=== PATIENT | male | born 1950 | race Caucasian/White ===

== ENCOUNTER → 2017-08-27 | Outpatient (CLI) | payer MEDICARE, OTHER ==
[~2017-08-27] MED LIST: CITA20 PO; CRUTCH4 USE; HYDACE5 PO; LOVA20 PO; Norco 5-325 Ta1 EACH PO; TAMS.4ER
== END | disposition home or self-care (01) ==
LOC: LAB SHORT 15:46 → PLD 15:46
DX: D55.2 Anemia due to disorders of glycolytic enzymes (principal)
CPT/HCPCS: 88305

== ENCOUNTER 2022-10-31 08:55 | Day surgery (SDC) | payer MEDICARE, OTHER ==
[~2022-10-31] VITALS: Ht 172.7 cm; Wt 81.5 kg
[2022-10-31] VITALS (20 sets, daily range): BP systolic 105–153; BP diastolic 63–94
[~2022-10-31 08:55] MED LIST changes: +ERGO400; +METO25ER PO; +MULVITA PO
--- NOTE | 2022-10-31 10:31 | NUR ---
Ambulatory in [facility] warming gown applied. Patient states colon prep results clear. History, Chart, Medications and Allergies reviewed before start of procedure.Lungs clear T/O to Auscultation. Patient confirms NPO status and agrees with scheduled surgery. Pre-Op teaching done. Pt verbalizes understanding. Patient States Post-Procedure ride home has been arranged. Patient states colon prep results clear.
--- NOTE | 2022-10-31 10:54 | NUR ---
10/31/22 1054 Jean Claude Barber HISTORY, CHART, MEDICATIONS AND ALLERGIES REVIEWED BEFORE START OF PROCEDURE. PATIENT CONFIRMS NPO STATUS AND AGREES WITH SCHEDULED PROCEDURE. 3-LEAD EKG REVIEWED WITH PHYSICIAN PRIOR TO START OF PROCEDURE. MONITOR INTACT WITH CONTINUOUS PULSE OXIMETRY,CAPNOGRAPHY, 3-LEAD EKG, INTERMITTENT BP. SUPPLEMENTAL O2 TO BE TITRATED THROUGHOUT PROCEDURE TO MAINTAIN O2 SATURATION ABOVE 90%. PATIENT DETERMINED TO BE ASA APPROPRIATE FOR PROPOFOL SEDATION PRIOR TO START OF PROCEDURE BY DR. BIRMINGHAM.
--- NOTE | 2022-10-31 11:35 | NUR ---
REPORT RECIEVED. VSS. ON ROOM AIR. DR BIRMINGHAM AT BEDSIDE, AT BED SIDE. TOLERING PO FLUIDS
--- NOTE | 2022-10-31 11:48 | NUR ---
Patient up to Ambulate independently. Gait steady. Discharge instructions reviewed with patient. Patient verbalizes understanding. Copy given to patient to take home. Discharged via wheelchair to private car for ride home.
== END 2022-10-31 11:56 | disposition home or self-care (01) ==
LOC: ORSCMMR 08:55 → ORD 10:00 → ORSCMMR 11:56
PROVIDERS: Internal Medicine Gastroenterology
PROC: 0DBK8ZX Excision of Ascending Colon, Via Natural or Artificial Opening Endoscopic, Diagnostic (ICD-10-PCS; principal; 2022-10-31 10:00)
PROC: 0DB98ZX Excision of Duodenum, Via Natural or Artificial Opening Endoscopic, Diagnostic (ICD-10-PCS; principal; 2022-10-31 10:00)
PROC: 0DB68ZX Excision of Stomach, Via Natural or Artificial Opening Endoscopic, Diagnostic (ICD-10-PCS; principal; 2022-10-31 10:00)
DX: R10.13 Epigastric pain (principal); R10.9 Unspecified abdominal pain; Z87.11 Personal history of peptic ulcer disease; B96.81 Helicobacter pylori [H. pylori] as the cause of diseases classified elsewhere; D12.2 Benign neoplasm of ascending colon; K57.30 Diverticulosis of large intestine without perforation or abscess without bleeding; E78.00 Pure hypercholesterolemia, unspecified; K21.9 Gastro-esophageal reflux disease without esophagitis; F32.A Depression, unspecified; Z87.891 Personal history of nicotine dependence; Z79.82 Long term (current) use of aspirin; Z79.899 Other long term (current) drug therapy
CPT/HCPCS: 88305; 88342; A9270; J2704; J7120

== ENCOUNTER → 2023-01-03 | Outpatient (CLI) | payer MEDICARE, OTHER | LOC: LAB 16:24 → LAB SHORT 16:24 | DX: R30.0 Dysuria (principal) | CPT/HCPCS: 87086 ==

== ENCOUNTER → 2024-02-29 | Outpatient (CLI) | payer MEDICARE, OTHER ==
[2024-02-29 18:35] LABS: Albumin, Blood 3.7 g/dL (3.4-5.0); Bilirubin, Total 0.5 mg/dL (0.1-1.0); Bun/Creatinine Ratio 18.5 (12.0-20.0); Calcium, Blood 8.8 mg/dL (8.5-10.1); Creatinine, Blood 0.87 mg/dL (0.60-1.20); Globulin, Blood 3.7 g/dL (2.2-4.0); Total Protein, Blood 7.4 g/dL (6.4-8.2)
== END ==
LOC: LAB 16:32 → LAB SHORT 16:32
PROVIDERS: Nurse Practitioner Family
DX: D50.9 Iron deficiency anemia, unspecified (principal); R25.2 Cramp and spasm
CPT/HCPCS: 80053; 82728; 83540; 83550; 83735

== ENCOUNTER 2025-02-12 11:38 | Day surgery (SDC) | payer MEDICARE, OTHER ==
[2025-02-12] MEDS ORDERED: NS 250 ML IV SCH (12:05)
[2025-02-12 16:00] VITALS: BP 106/75
[2025-02-12 17:13] VITALS: BP 101/69
[2025-02-12 18:13] VITALS: BP 120/69
[2025-02-12 18:47] VITALS: BP 124/79
[2025-02-12] MEDS ORDERED: TADALAFIL2.5 MG (19:12)
[2025-02-12] MEDS ORDERED: Cyclobenzaprine5 MG PO (19:12)
[2025-02-12] MEDS ORDERED: FINA5 PO (19:12)
[2025-02-12] MEDS ORDERED: FERSU300 PO (19:13)
[2025-02-12] MEDS ORDERED: PANT40 PO (19:13)
== END 2025-02-12 18:55 | disposition home or self-care (01) ==
LOC: ATC 11:38
DX: D61.818 Other pancytopenia (principal); K21.9 Gastro-esophageal reflux disease without esophagitis; Z87.891 Personal history of nicotine dependence; Z79.899 Other long term (current) drug therapy
CPT/HCPCS: 36430; 86850; 86900; 86901; 86923; J7050; P9016

== ENCOUNTER 2025-03-12 00:38 | Day surgery (SDC) | payer MEDICARE, OTHER ==
[~2025-03-12 00:38] MED LIST changes: +Cyclobenzaprine5 MG PO; +FERSU300 PO; +FINA5 PO; +PANT40 PO; +TADALAFIL2.5 MG
[2025-03-12] MEDS ORDERED: NS 250 ML IV SCH (07:00)
[2025-03-12 07:42] VITALS: BP 105/69
[2025-03-12 08:00] VITALS: BP 94/55
[2025-03-12 09:15] VITALS: BP 104/63
== END 2025-03-12 09:20 | disposition home or self-care (01) ==
LOC: ATC 00:38
DX: D61.818 Other pancytopenia (principal); E78.00 Pure hypercholesterolemia, unspecified; I73.9 Peripheral vascular disease, unspecified; Z87.891 Personal history of nicotine dependence
CPT/HCPCS: 36430; 86850; 86900; 86901; 86923; J7050; P9016

== ENCOUNTER 2025-04-12 23:32 | Inpatient (IN) | payer MEDICARE, OTHER ==
[~2025-04-12] VITALS: Ht 170.2 cm; Wt 73.8 kg
[2025-04-13] VITALS (9 sets, daily range): BP systolic 95–122; BP diastolic 60–82
[2025-04-13 00:28] LABS: Hematocrit 25.4 % (37.0-53.0); Hemoglobin 8.8 g/dL (13.5-17.5); Mean Corpuscular HGB Conc 34.6 g/dL (31.5-36.5); Mean Corpuscular Volume 91 fL (80-100); NRBC ABSOLUTE 0.00 K/mm3 (0.00-0.02); NRBC Auto 0.0 /100 WBC (0.0-0.2); RDW Coefficient Variation 17.8 % (11.7-14.2); RDW Standard Deviation 57.6 fL (35.1-46.3)
[2025-04-13 00:39] LABS: BASOPHILS ABSOLUTE AUTO 0.00 K/mm3 (0.00-0.23); BASOPHILS PERCENT AUTO 0 % (0-2); EOSINOPHILS ABSOLUTE AUTO 0.00 K/mm3 (0.00-0.68); EOSINOPHILS PERCENT AUTO 0 % (0-6); IMMATURE GRAN ABSOLUTE AUTO 0.00 K/mm3 (0.00-0.10); IMMATURE GRAN PERCENT AUTO 0 % (0-1); LYMPHOCYTES ABSOLUTE AUTO 0.58 K/mm3 (0.84-5.20); LYMPHOCYTES PERCENT AUTO 95 % (21-46); MONOCYTES ABSOLUTE AUTO 0.01 K/mm3 (0.16-1.47); MONOCYTES PERCENT AUTO 2 % (4-13); NEUTROPHILS ABSOLUTE AUTO 0.02 K/mm3 (1.96-9.15); NEUTROPHILS PERCENT AUTO 3 % (41-73)
[2025-04-13 00:42] LABS: Platelet Count 4 K/mm3 (150-400)
[2025-04-13 00:45] LABS: Prothrombin Time Results 11.2 Sec (9.7-11.5)
[2025-04-13 00:54] LABS: Alanine Aminotransfer (ALT/SGP 81.0 U/L (12-78); Albumin, Blood 3.3 g/dL (3.4-5.0); Albumin/Globulin Ratio 1.0 (0.8-1.8); Anion Gap 10.0 mmol/L (3-11); Aspartate Aminotrans (AST/SGOT 28.0 U/L (12-37); Bilirubin, Total 1.1 mg/dL (0.1-1.0); Blood Urea Nitrogen 17.0 mg/dL (8-24); CO2, Blood 23.0 mmol/L (21-32); Calcium, Blood 8.5 mg/dL (8.5-10.1); Chloride, Blood 108.0 mmol/L (98-108); Creatinine, Blood 0.88 mg/dL (0.60-1.20); Globulin, Blood 3.4 g/dL (2.2-4.0); Glucose, Blood 103.0 mg/dL (70-99); Potassium, Blood 3.6 mmol/L (3.5-5.5); Sodium, Blood 137.0 mmol/L (136-145); Total Protein, Blood 6.7 g/dL (6.4-8.2)
[2025-04-13] MEDS ORDERED: PRAV20 PO (03:47)
[2025-04-13] MEDS ORDERED: ACYC800 PO (03:50)
[2025-04-13] MEDS ORDERED: LEVOFLOXACIN50011 PO (03:51)
[2025-04-13] MEDS ORDERED: POSACONAZOLE100 MG PO (03:53)
[2025-04-13] MEDS ORDERED: SILODOSIN8 MG PO (03:54)
[2025-04-13 04:47] LABS: Hematocrit 26.2 % (37.0-53.0); Hemoglobin 8.9 g/dL (13.5-17.5); Mean Corpuscular HGB Conc 34.0 g/dL (31.5-36.5); Mean Corpuscular Volume 90 fL (80-100); NRBC ABSOLUTE 0.00 K/mm3 (0.00-0.02); NRBC Auto 0.0 /100 WBC (0.0-0.2); RDW Coefficient Variation 17.7 % (11.7-14.2); RDW Standard Deviation 58.0 fL (35.1-46.3)
[2025-04-13 05:01] LABS: Platelet Count 19 K/mm3 (150-400)
[2025-04-13] MEDS ORDERED: NS 500 ML IV SCH (05:45)
--- NOTE | 2025-04-13 06:35 | NUR ---
NEW ADMIT FOR 04/13/25 0330: SHIFT SUMMARY RECEIVED REPORT FROM THE ER. PT WAS BROUGHT DOWN ON THE GURNEY AND WAS ABLE TO GET UP AND AMBULATE TO THE BED. HE WAS ORIENTED TO HIS ROOM AND THE STAFF. ALERT ORIENTED X 4 ABLE TO VERBALIZE NEEDS .CALLS APPROPRIATELY. HE WAS HAVING A HEADACHE DOWN IN THE ER AND WAS GIVEN TYLENOL. HE STATED HE HAS NO MORE C/O HEADACHE. HIS PLATELETS IN THE ER WERE 4 AND HE RECEIVED 1 UNIT OF PLATELETS. A PLATELET LAB WAS DRAWN AFTER THE 1 UNIT AND IT WAS AT 19. CALLED MD AND INFORMED HIM AND HE STATED THAT THE PLATELET ORDER FROM THE ER DOCTOR WAS FOR 2 UNITS. I CALLED THE LAB AND THEY SENT UP THE OTHER UNIT OF PLATELETS WHICH ARE RUNNING NOW. HE WILL HAVE ANOTHER LAB DRAWN AFTER THE PLATELETS ARE FINISHED. HES ON A REGULAR DIET. ABLE TO TAKE MEDS WHOLE WITH WATER. HE HAS A PICC LINE TO HIS RT ARM THAT DRAWS. HE HAS A BRUISE TO HIS RIGHT EYE AND A BRUISE TO HIS RT LOWER LEG. BED IN LOWEST POSITION. CALL LIGHT IN REACH. CALLS APPROPRIATELY.
[2025-04-13 07:55] LABS: Hematocrit 23.1 % (37.0-53.0); Hemoglobin 7.9 g/dL (13.5-17.5); Mean Corpuscular HGB Conc 34.2 g/dL (31.5-36.5); Mean Corpuscular Volume 90 fL (80-100); NRBC ABSOLUTE 0.00 K/mm3 (0.00-0.02); NRBC Auto 0.0 /100 WBC (0.0-0.2); RDW Coefficient Variation 17.5 % (11.7-14.2); RDW Standard Deviation 56.8 fL (35.1-46.3)
[2025-04-13 08:07] LABS: Platelet Count 49 K/mm3 (150-400)
[2025-04-13 12:25] LABS: Hematocrit 23.4 % (37.0-53.0); Hemoglobin 8.1 g/dL (13.5-17.5); Mean Corpuscular HGB Conc 34.6 g/dL (31.5-36.5); Mean Corpuscular Volume 91 fL (80-100); NRBC ABSOLUTE 0.00 K/mm3 (0.00-0.02); NRBC Auto 0.0 /100 WBC (0.0-0.2); RDW Coefficient Variation 17.6 % (11.7-14.2); RDW Standard Deviation 57.3 fL (35.1-46.3)
[2025-04-13 12:32] LABS: BASOPHILS ABSOLUTE AUTO 0.00 K/mm3 (0.00-0.23); BASOPHILS PERCENT AUTO 0 % (0-2); EOSINOPHILS ABSOLUTE AUTO 0.00 K/mm3 (0.00-0.68); EOSINOPHILS PERCENT AUTO 0 % (0-6); IMMATURE GRAN ABSOLUTE AUTO 0.00 K/mm3 (0.00-0.10); IMMATURE GRAN PERCENT AUTO 0 % (0-1); LYMPHOCYTES ABSOLUTE AUTO 0.43 K/mm3 (0.84-5.20); LYMPHOCYTES PERCENT AUTO 94 % (21-46); MONOCYTES ABSOLUTE AUTO 0.01 K/mm3 (0.16-1.47); MONOCYTES PERCENT AUTO 2 % (4-13); NEUTROPHILS ABSOLUTE AUTO 0.02 K/mm3 (1.96-9.15); NEUTROPHILS PERCENT AUTO 4 % (41-73)
[2025-04-13 12:37] LABS: Platelet Count 50 K/mm3 (150-400)
--- NOTE | 2025-04-13 14:03 | NUR ---
RESTING IN BED, INDEPENDENT IN ROOM, DENIES ANY DISCOMFORT AT THIS TIME, CONT. TO MONITOR FOR ANY CHANGES.
--- NOTE | 2025-04-13 14:53 | NUR ---
NOTIFIED BY PT HE HAD A BM THAT IS DARK/BLACK COLORED, PT CONCERNED ABOUT "BLEEDING" ALSO REPORTS HE TOOK PEPTO BISMOL YESTERDAY, DR. HUYNH NOTIFIED, GUIAC ORDERED, DENIES ANY ABD PAIN, ABD SOFT AND NONTENDER, CONT. TO MONITOR FOR ANY CHANGES.
--- NOTE | 2025-04-13 17:00 | NUR ---
SHIFT SUMMARY A&OX4, DENIES ANY PAIN OR ANY DISCOMFORT T/O SHIFT, INDEPENDENT IN ROOM, NEUTROPENIC PRECAUTIONS, PENDING TRANSFER TO [facility], NO ACUTE CHANGES THIS SHIFT.
[2025-04-14] VITALS (10 sets, daily range): BP systolic 100–134; BP diastolic 49–93
--- NOTE | 2025-04-14 03:38 | NUR ---
SHIFT SUMMARY ALERT ORIENTED X 4 ABLE TO VERBALIZE NEEDS .CALLS APPROPRIATELY. GETS UP AD KYRA IN HIS ROOM AND URINATES IN A URINAL. C/O HEADACHE WAS GIVEN TYLENOL WITH GOOD RELIEF..LABS DRAWN FOR THIS AM ARE DONE AWAITING RESULTS TO SEE WHAT HIS PLATELETS ARE. [facility] CALLED TO GET A REPORT ON HIM. VSS ON RA SATTING AT 95-100%. REMAINS ON TELEMETRY AT [facility] WITH [facility] IN THE 60 S. NEURO CHECKS ARE GOD EXCEPT FOR HIS HEADACHE. NO DARK STOOLS THIS SHIFT. HE'S TOLERATING A REGULAR DIET. ABLE TO TAKE MEDS WHOLE WITH WATER. HE HAS A PICC LINE TO HIS RT ARM THAT DRAWS. HE HAS A BRUISE TO HIS RIGHT EYE AND A BRUISE TO HIS RT LOWER LEG. BED IN LOWEST POSITION. CALL LIGHT IN REACH. CALLS APPROPRIATELY.
[2025-04-14 03:58] LABS: Hematocrit 23.1 % (37.0-53.0); Hemoglobin 8.0 g/dL (13.5-17.5); Mean Corpuscular HGB Conc 34.6 g/dL (31.5-36.5); Mean Corpuscular Volume 89 fL (80-100); NRBC ABSOLUTE 0.00 K/mm3 (0.00-0.02); NRBC Auto 0.0 /100 WBC (0.0-0.2); RDW Coefficient Variation 17.4 % (11.7-14.2); RDW Standard Deviation 55.7 fL (35.1-46.3)
[2025-04-14 04:25] LABS: Platelet Count 38 K/mm3 (150-400)
[2025-04-14 04:31] LABS: Albumin, Blood 3.3 g/dL (3.4-5.0); Anion Gap 7 mmol/L (3-11); Blood Urea Nitrogen 15 mg/dL (8-24); CO2, Blood 27 mmol/L (21-32); Calcium, Blood 8.6 mg/dL (8.5-10.1); Chloride, Blood 106 mmol/L (98-108); Creatinine, Blood 0.93 mg/dL (0.60-1.20); Glucose, Blood 102 mg/dL (70-99); Magnesium, Blood 2.2 mg/dL (1.6-2.4); Phosphorus, Blood 2.4 mg/dL (2.5-4.9); Potassium, Blood 3.6 mmol/L (3.5-5.5); Sodium, Blood 136 mmol/L (136-145)
--- NOTE | 2025-04-14 04:43 | NUR ---
SHIFT SUMMARY ALERT ORIENTED X 4 ABLE TO VERBALIZE NEEDS .CALLS APPROPRIATELY. GETS UP TO THE COMMODE WITH 1 PERSON SBA. HER HR HAS BEEN ALL OVER THE PLACE THIS SHIFT 80 S-150 S. AT THE START OF THE SHIFT SHE WAS ON CARDIZEM 10. HER BP WAS AT 84/67 SO WE TURNED OFF THE CARDIZEM DRIP. HER HR STARTED GOING BACK UP TO THE 140 S-150 S. CALLED MD AND GOT A ORDER FOR METOPROLOL. A DOSE WAS GIVEN AT 2258. HER HR CONTINUED TO STAY THE SAME IN THE 130 S SO WE RESTARTED HER CARDIZEM DRIP AT 2322. SHE'S CURRENTLY ON CARDIZEM 10. HER HR NOW IS IN THE 80 S-100 S. BP REMAINS STABLE. SHES CURRENTLY ON 3.5L OF O2 VIA NC SATTING 93-95%. SHE'S ALSO ON A HEPARIN DRIP AT 15U/KG/HR OR 19.5ML/HR. THE LAB WAS DONE AT 0130 WAS 0.56 SO WE CONTINUED THE SAME DOSE. IT WILL BE RECHECKED AT 0800. REMAINS ON TELEMETRY AT [facility] WITH [facility]. . SHE'S TOLERATING A 2 GM SODIUM DIET. ABLE TO TAKE MEDS WHOLE WITH WATER. . BED IN LOWEST POSITION. CALL LIGHT IN REACH. CALLS APPROPRIATELY.
[2025-04-14 08:50] LABS: Hematocrit 23.7 % (37.0-53.0); Hemoglobin 8.3 g/dL (13.5-17.5); Mean Corpuscular HGB Conc 35.0 g/dL (31.5-36.5); Mean Corpuscular Volume 91 fL (80-100); NRBC ABSOLUTE 0.00 K/mm3 (0.00-0.02); NRBC Auto 0.0 /100 WBC (0.0-0.2); Platelet Count 65 K/mm3 (150-400); RDW Coefficient Variation 17.5 % (11.7-14.2); RDW Standard Deviation 56.4 fL (35.1-46.3)
[2025-04-14 09:22] LABS: BASOPHILS ABSOLUTE MAN 0.02 K/mm3 (0.00-0.23); BASOPHILS PERCENT MAN 4 % (0-2); EOSINOPHILS ABSOLUTE MAN 0.00 K/mm3 (0.00-0.68); EOSINOPHILS PERCENT MAN 0 % (0-6); LYMPHOCYTES ABSOLUTE MAN 0.49 K/mm3 (0.84-5.20); LYMPHOCYTES PERCENT MAN 88 % (21-46); MONOCYTES ABSOLUTE MAN 0.00 K/mm3 (0.16-1.47); MONOCYTES PERCENT MAN 0 % (4-13); NEUTROPHILS ABSOLUTE MAN 0.04 K/mm3 (1.96-9.15); SEG NEUTROPHILS PERCENT MAN 8 % (41-73)
[2025-04-14 12:50] LABS: Stool Occult Blood Guaiac 1 Neg (Neg)
--- NOTE | 2025-04-14 13:15 | NUR ---
TRANSFER NOTE PATIENT RECIEVED FROM PCU VIA WHEELCHAIR,A&OX4,DENIES HEADACHE,SOB, OR N/V AT THIS TIME.ORIENTED TO NEW ROOM, PT IN BED, BED LOW W/HANDRAILS UP, CALL LIGHT WITHIN REACH, PROVIDED WITH WATER AND THIS RN WORE A FACE MASK THROUGHOUT TIME WITH PATIENT PER HIS REQUEST. NO FURTHER NEEDS AT THIS TIME WILL CONTINUE TO MONITOR.
--- NOTE | 2025-04-14 15:00 | NUR ---
[facility] CALL- THIS RN SPOKE WITH [facility] TRANSFER RN ARELIS AND GAVE HER CURRENT STATUS OF PT INCLUDING HIS DOWNGRADE FROM PCU TO MEDICAL FLOOR, PLATELETS INCREASING FROM 49 TO 65 AFTER 3 UNITS OF PLATELETS GIVEN OVER 24HR PERIOD, CBC AND CMP TO BE DRAWN THIS EVENING TO RE-EVALUATE PLATELETS,OCCULT STOOL=NEGATIVE, CT RESULTS SHOWED CHRONIC VS/ACUTE BILATERAL SUBDURAL HEMATOMAS W/UNCHANGING ECCHYMOSIS AROUND RT EYE, HEADACHES MANAGED WELL W/PRN TYLENOL.NO BEDS CURRENTLY AVAILABLE FOR PT TO TRANSFER TO [facility],MADE PTS WISHES KNOW NOT TO BE TRANSFERRED TO [facility] IF POSSIBLE AND IF STABLE TO BE DISCHARGED HOME FROM THIS HOSPITAL AND FOLLOW UP OUT PATIENT, ARELIS MADE A NOTE OF THAT AND IF PATIENTS CONDITONS CONTINUES TO STABLIZE AND MD HERE AT [facility], MAY BE APPROPRIATE TO DC PT HOME FROM THIS HOSPITAL.
--- NOTE | 2025-04-14 17:16 | NUR ---
PATIENT RESTING IN BED, TRANSFERRED FROM PCU TO MEDICAL FLOOR THIS AFTERNOON, A&OX4, DENIES SOB,PAIN OR N/V AT THIS TIME. SETTLED INTO NEW ROOM, CALL LIGHT WITHIN REACH,BED LOW W/HANDRAILS IN UP POSITION. PATIENT INDEPENDENT TO RESTROOM, NO BM DURING TIME IN MEDICAL UNIT, VITALS WNL, SKIN PINK WARM AND DRY WITH BRUISING AROUND RIGHT EYE, VISITOR AT BEDSIDE VISITING WITH PATIENT, FRESH WATER PROVIDED, NO NEW ORDERS NOTED, WILL CONTINUE TO MONITOR, SBAR TO PM NURSE AT 1915.
--- NOTE | 2025-04-14 18:20 | NUR ---
LAB DRAW VIA PICC LINE BY THIS RN, PICC TO RT UPPER ARM, 2 LUMEN, PATENT, WITHDREW 10MLS OF BLOOD AND DISCARDED, WITHDREW ANOTHER 10 MLS AND FILLED PURPLE TUBE PER MD/LAB ORDER PROTOCOL, LABELED AND SENT TO LAB VIA TUBE SYSTEM.
[2025-04-14 18:52] LABS: Hematocrit 23.7 % (37.0-53.0); Hemoglobin 8.2 g/dL (13.5-17.5); Mean Corpuscular HGB Conc 34.6 g/dL (31.5-36.5); Mean Corpuscular Volume 89 fL (80-100); NRBC ABSOLUTE 0.00 K/mm3 (0.00-0.02); NRBC Auto 0.0 /100 WBC (0.0-0.2); Platelet Count 63 K/mm3 (150-400); RDW Coefficient Variation 17.4 % (11.7-14.2); RDW Standard Deviation 55.9 fL (35.1-46.3)
[2025-04-14 19:07] LABS: BASOPHILS ABSOLUTE AUTO 0.00 K/mm3 (0.00-0.23); BASOPHILS PERCENT AUTO 0 % (0-2); EOSINOPHILS ABSOLUTE AUTO 0.01 K/mm3 (0.00-0.68); EOSINOPHILS PERCENT AUTO 2 % (0-6); IMMATURE GRAN ABSOLUTE AUTO 0.00 K/mm3 (0.00-0.10); IMMATURE GRAN PERCENT AUTO 0 % (0-1); LYMPHOCYTES ABSOLUTE AUTO 0.49 K/mm3 (0.84-5.20); LYMPHOCYTES PERCENT AUTO 91 % (21-46); MONOCYTES ABSOLUTE AUTO 0.02 K/mm3 (0.16-1.47); MONOCYTES PERCENT AUTO 4 % (4-13); NEUTROPHILS ABSOLUTE AUTO 0.02 K/mm3 (1.96-9.15); NEUTROPHILS PERCENT AUTO 4 % (41-73)
[2025-04-15 05:02] VITALS: BP 135/69
[2025-04-15] MEDS ORDERED: Alteplase Recombinant 2 MG / Vial IV ONE (05:35)
[2025-04-15 05:38] LABS: Hematocrit 23.2 % (37.0-53.0); Hemoglobin 8.2 g/dL (13.5-17.5); Mean Corpuscular HGB Conc 35.3 g/dL (31.5-36.5); Mean Corpuscular Volume 89 fL (80-100); NRBC ABSOLUTE 0.00 K/mm3 (0.00-0.02); NRBC Auto 0.0 /100 WBC (0.0-0.2); Platelet Count 52 K/mm3 (150-400); RDW Coefficient Variation 17.4 % (11.7-14.2); RDW Standard Deviation 55.5 fL (35.1-46.3)
[2025-04-15 05:39] LABS: BASOPHILS ABSOLUTE AUTO 0.00 K/mm3 (0.00-0.23); BASOPHILS PERCENT AUTO 0 % (0-2); EOSINOPHILS ABSOLUTE AUTO 0.00 K/mm3 (0.00-0.68); EOSINOPHILS PERCENT AUTO 0 % (0-6); IMMATURE GRAN ABSOLUTE AUTO 0.00 K/mm3 (0.00-0.10); IMMATURE GRAN PERCENT AUTO 0 % (0-1); LYMPHOCYTES ABSOLUTE AUTO 0.60 K/mm3 (0.84-5.20); LYMPHOCYTES PERCENT AUTO 94 % (21-46); MONOCYTES ABSOLUTE AUTO 0.02 K/mm3 (0.16-1.47); MONOCYTES PERCENT AUTO 3 % (4-13); NEUTROPHILS ABSOLUTE AUTO 0.02 K/mm3 (1.96-9.15); NEUTROPHILS PERCENT AUTO 3 % (41-73)
[2025-04-15 05:54] LABS: Anion Gap 8.0 mmol/L (3-11); Blood Urea Nitrogen 15.0 mg/dL (8-24); CO2, Blood 26.0 mmol/L (21-32); Calcium, Blood 8.8 mg/dL (8.5-10.1); Chloride, Blood 105.0 mmol/L (98-108); Creatinine, Blood 0.87 mg/dL (0.60-1.20); Glucose, Blood 100.0 mg/dL (70-99); Potassium, Blood 3.7 mmol/L (3.5-5.5); Sodium, Blood 135.0 mmol/L (136-145)
--- NOTE | 2025-04-15 05:57 | NUR ---
SHIFT SUMMARY: PT AOX4, IND IN THE ROOM. CALLS APPROPRIATELY ABLE TO MAKE NEEDS KNOWN. COMPLAINING OF SOME SWEATING IN SLEEP, NO FEVER PER VITALS AND SPOT CHECKS. TOLERATING MEDICATIONS WELL, NO ACUTE OVERNIGHT EVENTS. LABS WITHIN ACCEPTABLE RANGE. [facility] CALLED FOR UPDATES, STATED THEY WOULD CALL AGAIN ON DAYSHIFT TO CHECK STATUS. PT IN BED RESTING, BED IN LOWEST POSITION, CALL LIGHT IN REACH. CONTINUING CARE.
[2025-04-15 07:38] VITALS: BP 124/78
[2025-04-15 12:25] LABS: Hematocrit 25.2 % (37.0-53.0); Hemoglobin 8.9 g/dL (13.5-17.5); Mean Corpuscular HGB Conc 35.3 g/dL (31.5-36.5); Mean Corpuscular Volume 89 fL (80-100); NRBC ABSOLUTE 0.00 K/mm3 (0.00-0.02); NRBC Auto 0.0 /100 WBC (0.0-0.2); RDW Coefficient Variation 17.6 % (11.7-14.2); RDW Standard Deviation 55.7 fL (35.1-46.3)
[2025-04-15 12:29] LABS: Platelet Count 50 K/mm3 (150-400)
[2025-04-15 12:47] LABS: BASOPHILS ABSOLUTE MAN 0.00 K/mm3 (0.00-0.23); BASOPHILS PERCENT MAN 2 % (0-2); EOSINOPHILS ABSOLUTE MAN 0.00 K/mm3 (0.00-0.68); EOSINOPHILS PERCENT MAN 0 % (0-6); LYMPHOCYTES ABSOLUTE MAN 0.40 K/mm3 (0.84-5.20); LYMPHOCYTES PERCENT MAN 88 % (21-46); MONOCYTES ABSOLUTE MAN 0.00 K/mm3 (0.16-1.47); MONOCYTES PERCENT MAN 0 % (4-13); NEUTROPHILS ABSOLUTE MAN 0.04 K/mm3 (1.96-9.15); SEG NEUTROPHILS PERCENT MAN 10 % (41-73)
[2025-04-15 15:54] VITALS: BP 128/88
--- NOTE | 2025-04-15 18:05 | NUR ---
END OF SHIFT NOTE PATIENT RESTING IN BED. A&O4, ABLE TO MAKE NEEDS KNOWN. BED IN LOWEST POSITION, CALL LIGHT IN REACH. PATIENT HAD BEDBATH TODAY, DECLINED A SHHOWER AFTER BLOOD DRAW, IN FEAR OF POSSIBLY GETTING AN INFECTION IN THE BLOOD DRAW SITE. PICC LINE NOT DRAWING, ONLY ONE LINE HARD FLUSH. PATIENT IND IN ROOM, AMBULATES HALLS. DECLINES NEEDS OR QUESTIONS. POSSIBLE D/C TOMORROW.
[2025-04-15 20:20] VITALS: BP 104/65
[2025-04-16] VITALS (9 sets, daily range): BP systolic 107–122; BP diastolic 61–80
--- NOTE | 2025-04-16 03:44 | NUR ---
SHIFT SUMMARY NO ACUTE EVENTS DURING THIS SHIFT. ASSUMED CARE OF THIS PT APPROXIMATELY 0100. REPORT RECEIVED FROM MELCHOR COLLADO. PT CONTINUES ON NEUTROPENIC PRECAUTIONS. PT RESTING W/O ANY ACUTE DISTRESS FOR THE REST OF THIS SHIFT. VSS. PT IS A/O X4, ABLE TO MAKE HIS NEEDS KNOWN AND COOPERATIVE WITH CARE. BED AT THE LOWEST POSITION, CALL LIGHT W/I REACH.
[2025-04-16 06:30] LABS: Hematocrit 22.8 % (37.0-53.0); Hemoglobin 8.0 g/dL (13.5-17.5); Mean Corpuscular HGB Conc 35.1 g/dL (31.5-36.5); Mean Corpuscular Volume 89 fL (80-100); NRBC ABSOLUTE 0.00 K/mm3 (0.00-0.02); NRBC Auto 0.0 /100 WBC (0.0-0.2); RDW Coefficient Variation 17.5 % (11.7-14.2); RDW Standard Deviation 55.9 fL (35.1-46.3)
[2025-04-16 06:36] LABS: BASOPHILS ABSOLUTE AUTO 0.00 K/mm3 (0.00-0.23); BASOPHILS PERCENT AUTO 0 % (0-2); EOSINOPHILS ABSOLUTE AUTO 0.00 K/mm3 (0.00-0.68); EOSINOPHILS PERCENT AUTO 0 % (0-6); IMMATURE GRAN ABSOLUTE AUTO 0.00 K/mm3 (0.00-0.10); IMMATURE GRAN PERCENT AUTO 0 % (0-1); LYMPHOCYTES ABSOLUTE AUTO 0.65 K/mm3 (0.84-5.20); LYMPHOCYTES PERCENT AUTO 93 % (21-46); MONOCYTES ABSOLUTE AUTO 0.02 K/mm3 (0.16-1.47); MONOCYTES PERCENT AUTO 3 % (4-13); NEUTROPHILS ABSOLUTE AUTO 0.03 K/mm3 (1.96-9.15); NEUTROPHILS PERCENT AUTO 4 % (41-73)
[2025-04-16 06:37] LABS: Platelet Count 36 K/mm3 (150-400)
[2025-04-16 14:39] LABS: CORONAVIRUS COVID-19 AG Negative (NEGATIVE)
--- NOTE | 2025-04-16 15:26 | NUR ---
1505 DISCHARGE DISCHARGE INSTRUCTIONS REVIEWED WITH THE PATIENT. PATIENT STATED UNDERSTANDING OF DISCHARGE INSTRUCTIONS. PICC LINE DRESSING CHANGED. PATIENT LEFT WITH ALL OF HIS BELONGINGS WITH HIS TO HOME. HE LEFT IN A STABLE CONDITION.
== END 2025-04-16 15:15 | disposition home or self-care (01) | DRG 834 ==
LOC: ER 23:32 → PCU 23:33 → ERHOLD 23:33 → PCU 04-13 03:26 → MEDS 04-14 14:23 → ENPENDDIS 04-16 12:53 → MEDS 04-16 15:15
PROVIDERS: Emergency Medicine; Internal Medicine; ADMIT Internal Medicine
PROC: 30233R1 Transfusion of Nonautologous Platelets into Peripheral Vein, Percutaneous Approach (ICD-10-PCS; principal; 2025-04-12)
DX: C92.00 Acute myeloblastic leukemia, not having achieved remission (principal); I62.01 Nontraumatic acute subdural hemorrhage; D61.818 Other pancytopenia; E78.00 Pure hypercholesterolemia, unspecified; N40.0 Benign prostatic hyperplasia without lower urinary tract symptoms; F32.A Depression, unspecified; F41.9 Anxiety disorder, unspecified; K21.9 Gastro-esophageal reflux disease without esophagitis; D69.59 Other secondary thrombocytopenia; T45.1X5A Adverse effect of antineoplastic and immunosuppressive drugs, initial encounter; R29.709 NIHSS score 9; K27.9 Peptic ulcer, site unspecified, unspecified as acute or chronic, without hemorrhage or perforation; Z79.899 Other long term (current) drug therapy; Z87.891 Personal history of nicotine dependence; Z87.19 Personal history of other diseases of the digestive system; Z90.49 Acquired absence of other specified parts of digestive tract
CPT/HCPCS: 36415; 36430; 70450; 80048; 80053; 80069; 82272; 83735; 85025; 85027; 85610; 86850; 86900; 86901; 87428-QW; 99285-25; A9270; G0378; J7040; P9035

== ENCOUNTER 2025-04-22 07:19 | Day surgery (SDC) | payer MEDICARE, OTHER ==
[2025-04-20 14:22] VITALS: BP 121/76
[2025-04-20 15:01] LABS: Hematocrit 20.9 % (37.0-53.0); Hemoglobin 7.3 g/dL (13.5-17.5); Mean Corpuscular HGB Conc 34.9 g/dL (31.5-36.5); Mean Corpuscular Volume 89 fL (80-100); NRBC ABSOLUTE 0.00 K/mm3 (0.00-0.02); NRBC Auto 0.0 /100 WBC (0.0-0.2); RDW Coefficient Variation 17.6 % (11.7-14.2); RDW Standard Deviation 55.2 fL (35.1-46.3)
[2025-04-20 15:11] LABS: BASOPHILS ABSOLUTE AUTO 0.00 K/mm3 (0.00-0.23); BASOPHILS PERCENT AUTO 0 % (0-2); EOSINOPHILS ABSOLUTE AUTO 0.00 K/mm3 (0.00-0.68); EOSINOPHILS PERCENT AUTO 0 % (0-6); IMMATURE GRAN ABSOLUTE AUTO 0.00 K/mm3 (0.00-0.10); IMMATURE GRAN PERCENT AUTO 0 % (0-1); LYMPHOCYTES ABSOLUTE AUTO 0.57 K/mm3 (0.84-5.20); LYMPHOCYTES PERCENT AUTO 86 % (21-46); MONOCYTES ABSOLUTE AUTO 0.02 K/mm3 (0.16-1.47); MONOCYTES PERCENT AUTO 3 % (4-13); NEUTROPHILS ABSOLUTE AUTO 0.07 K/mm3 (1.96-9.15); NEUTROPHILS PERCENT AUTO 11 % (41-73)
[2025-04-20 15:13] LABS: Platelet Count 16 K/mm3 (150-400)
[2025-04-20 15:37] LABS: Alanine Aminotransfer (ALT/SGP 85.0 U/L (12-78); Albumin, Blood 3.6 g/dL (3.4-5.0); Albumin/Globulin Ratio 0.9 (0.8-1.8); Anion Gap 9.0 mmol/L (3-11); Aspartate Aminotrans (AST/SGOT 21.0 U/L (12-37); Bilirubin, Total 1.0 mg/dL (0.1-1.0); Blood Urea Nitrogen 22.0 mg/dL (8-24); CO2, Blood 24.0 mmol/L (21-32); Calcium, Blood 8.5 mg/dL (8.5-10.1); Chloride, Blood 104.0 mmol/L (98-108); Creatinine, Blood 0.85 mg/dL (0.60-1.20); Globulin, Blood 3.8 g/dL (2.2-4.0); Glucose, Blood 97.0 mg/dL (70-99); Lactate Dehydrogenase (Ld),Bld 193.0 U/L (100-240); Magnesium, Blood 2.3 mg/dL (1.6-2.4); Phosphorus, Blood 2.1 mg/dL (2.5-4.9); Potassium, Blood 3.8 mmol/L (3.5-5.5); Sodium, Blood 133.0 mmol/L (136-145); Total Protein, Blood 7.4 g/dL (6.4-8.2)
[~2025-04-22 07:19] MED LIST changes: +ACYC800 PO; +LEVOFLOXACIN50011 PO; +NS 250 ML IV SCH; +POSACONAZOLE100 MG PO; +PRAV20 PO; +SILODOSIN8 MG PO
[2025-04-22] MEDS ORDERED: NS 250 ML IV SCH (07:45)
[2025-04-22 13:17] VITALS: BP 113/61
[2025-04-22 13:39] VITALS: BP 105/60
[2025-04-22 13:58] VITALS: BP 100/61
[2025-04-22 14:21] VITALS: BP 98/62
[2025-04-22 15:34] VITALS: BP 119/60
== END 2025-04-22 15:38 | disposition home or self-care (01) ==
LOC: ATC 07:19
PROVIDERS: Internal Medicine Hematology & Oncology
DX: D61.818 Other pancytopenia (principal); C92.00 Acute myeloblastic leukemia, not having achieved remission; E78.00 Pure hypercholesterolemia, unspecified; I73.9 Peripheral vascular disease, unspecified; Z87.891 Personal history of nicotine dependence
CPT/HCPCS: 36430; 80053; 83615; 83735; 84100; 85025; 86850; 86900; 86901; 86923; J7050; P9016